=== PATIENT | female | born 2000 | race Hispanic/Latino ===

== ENCOUNTER 2023-05-20 14:32 | Emergency (ER) | payer BC, SELFPAY ==
[2023-05-20] VITALS (8 sets, daily range): BP systolic 100–119; BP diastolic 50–81; PULSE 76–90; RESP 14–18; TEMP 36.3–37.3; O2SAT 100
[2023-05-20 15:10] LABS: Basophils Absolute Auto 0.1 K/mm3 (0.0-0.1); Basophils Percent Auto 1.2 % (0.2-1.2); Eosinophils Percent Auto 0.5 % (0-4.4); Hematocrit 27.1 % (37.0-47.0); Immature Granulocyte Absolute 0.01 K/mm3 (0.00-0.031); Immature Granulocyte Percent A 0.2 % (0-0.5); Lymphocytes Absolute Auto 1.61 K/mm3 (0.9-3.2); Lymphocytes Percent Auto 27.5 % (18.3-44.2); Mean Corpuscular HGB Conc 25.5 g/dl (32-36); Mean Corpuscular Hemoglobin 16.5 pg (26-34); Mean Platelet Volume 9.5 fl (7.4-10.4); Monocytes Absolute Auto 0.4 K/mm3 (0.1-0.6); Monocytes Percent Auto 6.8 % (2.6-8.5); Neutrophils Absolute Auto 3.7 K/mm3 (1.3-6.7); Neutrophils Percent Auto 63.8 % (45.5-73.1); Platelet Count Result 318 k/mm3 (150-375); Red Blood Count 4.17 M/mm3 (4.2-5.4); White Blood Count 5.9 K/mm3 (4.5-10.0)
[2023-05-20 15:19] LABS: Prothrombin Time 14.1 Seconds (11.1-14.7)
[2023-05-20 15:20] LABS: Partial Thromboplastin Time 28.8 SECONDS (22.3-36.8)
[2023-05-20 15:25] LABS: Alanine Aminotransferase 9 U/L (6-35); Albumin Level 4.6 g/dL (3.5-5.1); Alkaline Phosphatase 59 U/L (38-126); Anion Gap 6 mmol/L (8-16); Aspartate Amino Transferase 23 U/L (14-36); Bilirubin,Total 0.7 mg/dL (0.2-1.3); Blood Urea Nitrogen 10 mg/dL (7-17); Calcium 9.2 mg/dL (8.4-10.2); Carbon Dioxide 27 mmol/L (22-30); Chloride 105 mmol/L (98-107); Estimated CRCL calculation 121 ml/min; Estimated Glomerular Filt Rate > 60; Glucose 101 mg/dL (65-110); Sodium 138 mmol/L (137-145)
[2023-05-20 15:36] LABS: Hemoglobin 6.9 g/dL (12.0-15.0)
[2023-05-20 15:45] LABS: Platelet Estimate Adequate (Adequate)
[2023-05-20 15:46] LABS: Anisocytosis 3+ (NORMAL); Hypochromasia 1+ (NORMAL); Schistocytes None Seen (NORMAL)
[2023-05-20 15:47] LABS: Macrocytosis 2+ (NORMAL)
[2023-05-20] MEDS: SODIUM CHLORIDE 0.9% IV 250 ML 30 ML IV CONT (16:47)
[2023-05-20] MEDS: TUBING, BLOOD PLUM PUMP TUBING 1 EACH XX ×2 (16:47→18:36)
--- NOTE | 2023-05-20 16:49 | ED.GENADULT ---
HPI - General Adult General Chief complaint: Recheck/Abnormal Lab/Rx Stated complaint: sent by derm for RX? Time Seen by Provider: 05/20/23 14:51 History of Present Illness HPI narrative: Patient is a 22-year-old female who was sent to the ER by her steel burner for anemia. Patient was having a workup for alopecia and was found to have a critically low hemoglobin of 6.5. Patient reports moderately heavy and menstrual cycles for the 1st 2 days but they do not last longer than 5-6 days. She has had no syncope. She reports she gets short of breath when walking up stairs but thought it was just related to poor conditioning. She does endorse cold intolerance. She has had no dark black stools. She has not been told that she has been anemic in the past. Denies any family history of anemia. Related Data Allergies Allergy/AdvReac Type Severity Reaction Status Date / Time No Known Allergies Allergy Verified 05/20/23 14:33 Review of Systems Review of Systems: All systems reviewed & are unremarkable except as noted in HPI and below Constitutional: Constitutional: Reports no additional constitutional complaints ENT: Reports system reviewed and no additional complaints, except as documented Cardiovascular: Cardiovascular: Reports no additional cardiovascular complaints Respiratory: Respiratory: Reports no additional respiratory complaints Gastrointestinal: Gastrointestinal: Reports no additional gastrointestinal complaints Genitourinary: Genitourinary: Reports no additional female genitourinary complaints PMFSH Past Medical History Medical History (Updated 05/20/23 @ 16:55 by Julius Higgins MD) Asthma Surgical History Surgical History (Updated 05/20/23 @ 16:55 by Julius Higgins MD) No pertinent past surgical history Exam Narrative: GENERAL: Well-appearing, well-nourished, and in no acute distress. HEAD: Normocephalic, atraumatic. ENT: Mucous membranes moist. NECK: Supple. CHEST: Clear to auscultation. No respiratory distress. HEART: Regular rate and rhythm. Normal peripheral pulses. EXTREMITIES: Normal range of motion. No edema. NEURO: Alert and oriented x3. PSYCH: Normal mood and affect. Course Course Emergency Course: Discussed case with hematology. Recommends transfusion and some additional anemia orders. Patient may be discharged home with outpatient follow-up. Recommend b.i.d. iron as well as daily vitamin- C. Patient educated on the treatment plan and verbalized understanding. Additionally patient has been instructed to discontinue her spironolactone at the recommendation of her steel burner. Vital Signs Vital signs: Vital Signs Temperature 97.7 F 05/20/23 14:41 Pulse Rate 87 05/20/23 14:41 Respiratory Rate 14 05/20/23 14:41 Blood Pressure 119/81 05/20/23 14:41 Pulse Oximetry 100 05/20/23 14:41 Temperature 99.1 F 05/20/23 16:48 Pulse Rate 82 05/20/23 16:48 Respiratory Rate 18 05/20/23 16:48 Blood Pressure 117/74 05/20/23 16:48 Pulse Oximetry 100 05/20/23 16:48 Medical Decision Making Vital Signs Vital Signs: Vital Signs Temperature 97.7 F 05/20/23 14:41 Pulse Rate 87 05/20/23 14:41 Respiratory Rate 14 05/20/23 14:41 Blood Pressure 119/81 05/20/23 14:41 Pulse Oximetry 100 05/20/23 14:41 Temperature 99.1 F 05/20/23 16:48 Pulse Rate 82 05/20/23 16:48 Respiratory Rate 18 05/20/23 16:48 Blood Pressure 117/74 05/20/23 16:48 Pulse Oximetry 100 05/20/23 16:48 Lab Data 05/20/23 15:02 05/20/23 15:02 Labs: Lab Results 05/20/23 05/20/23 Range/Units 15:02 16:05 WBC 5.9 (4.5-10.0) K/mm3 RBC 4.17 L (4.2-5.4) M/mm3 Hgb 6.9 L* (12.0-15.0) g/dL Hct 27.1 L (37.0-47.0) % MCV 65.0 L (80-100) fl MCH 16.5 L (26-34) pg MCHC 25.5 L (32-36) g/dl RDW 19.0 H (11.5-14.5) % Plt Count 318 (150-375) k/mm3 MPV 9.5 (7.4-10.4) fl
[2023-05-20 16:53] LABS: Immature Reticulocyte Fraction 14.3 % (3.0-15.9); Reticulocyte Hemoglobin Conten 15.5 pg (28.2-35.7); Reticulocyte Percent 1.31 % (0.7-4.3); Reticulocytes Absolute 0.05 M/mm3 (0.02-0.1)
[2023-05-20 17:32] LABS: Lactate Dehydrogenase 167 U/L (120-246)
[2023-05-20 18:04] LABS: Ferritin 3.03 ng/mL (6.24-137)
[2023-05-20 18:39] LABS: Folic Acid 6.6 ng/mL (2.76->20)
[2023-05-23 10:41] LABS: Haptoglobin 125 mg/dL (43-212)
== END 2023-05-20 20:05 | disposition home or self-care (01) ==
PROVIDERS: Emergency Provider Emergency Medicine
DX: D64.9 Anemia, unspecified (principal); J45.909 Unspecified asthma, uncomplicated
CPT/HCPCS: 36415; 36430; 80053; 82607; 82728; 82746; 83010; 83615; 85025; 85046; 85610; 85730; 86850; 86900; 86901; 86923; 96360; 96361; 99285; J7050; P9016

== ENCOUNTER 2023-06-03 14:54 | Outpatient (CLI) | payer BC, SELFPAY ==
[2023-06-03 15:14] LABS: Basophils Absolute Auto 0.1 K/mm3 (0.0-0.1); Basophils Percent Auto 0.9 % (0.2-1.2); Eosinophils Absolute Auto 0.1 K/mm3 (0-0.3); Eosinophils Percent Auto 0.7 % (0-4.4); Hematocrit 38.6 % (37.0-47.0); Hemoglobin 11.1 g/dL (12.0-15.0); Immature Granulocyte Absolute 0.03 K/mm3 (0.00-0.031); Immature Granulocyte Percent A 0.4 % (0-0.5); Lymphocytes Absolute Auto 1.63 K/mm3 (0.9-3.2); Lymphocytes Percent Auto 20.1 % (18.3-44.2); Mean Corpuscular HGB Conc 28.8 g/dl (32-36); Mean Corpuscular Hemoglobin 21.7 pg (26-34); Mean Corpuscular Volume 75.5 fl (80-100); Mean Platelet Volume 9.6 fl (7.4-10.4); Monocytes Absolute Auto 0.4 K/mm3 (0.1-0.6); Monocytes Percent Auto 4.9 % (2.6-8.5); Neutrophils Absolute Auto 5.9 K/mm3 (1.3-6.7); Platelet Count Result 424 k/mm3 (150-375); Red Blood Count 5.11 M/mm3 (4.2-5.4); Red Cell Distribution Width 29.2 % (11.5-14.5); White Blood Count 8.1 K/mm3 (4.5-10.0)
[2023-06-03 15:24] LABS: Anisocytosis 1+; Microcytosis 1+ (NORMAL); Platelet Estimate Increased (Adequate); Schistocytes None Seen
[2023-06-03 15:25] LABS: Hypochromasia 1+
[2023-06-03 19:19] LABS: Iron 83 ug/dL (37-170)
[2023-06-03 19:28] LABS: Percent Iron Saturation 20 % (20-50)
[2023-06-03 20:30] LABS: Alanine Aminotransferase 11 U/L (6-35); Albumin Level 4.4 g/dL (3.5-5.1); Alkaline Phosphatase 57 U/L (38-126); Anion Gap 7 mmol/L (8-16); Aspartate Amino Transferase 20 U/L (14-36); Bilirubin,Total 0.6 mg/dL (0.2-1.3); Blood Urea Nitrogen 10 mg/dL (7-17); Calcium 9.2 mg/dL (8.4-10.2); Carbon Dioxide 25 mmol/L (22-30); Chloride 107 mmol/L (98-107); Estimated Glomerular Filt Rate > 60; Glucose 104 mg/dL (65-110); Lactate Dehydrogenase 176 U/L (120-246); Potassium 3.7 mmol/L (3.4-5.0); Sodium 139 mmol/L (137-145)
[2023-06-03 21:37] LABS: Folic Acid 7.1 ng/mL (2.76->20)
[2023-06-07 14:46] LABS: Methylmalonic Acid 119 nmol/L (87-318)
[2023-06-10 12:32] LABS: Soluble Transferrin Receptor 3.01 mg/L (0.76-1.76)
== END 2023-06-03 14:55 | disposition home or self-care (01) ==
LOC: ANHLAB 14:57
PROVIDERS: Nurse Practitioner Family; Visit Provider Internal Medicine Hematology & Oncology
DX: D50.8 Other iron deficiency anemias (principal)
CPT/HCPCS: 36415; 80053; 82607; 82728; 82746; 83540; 83550; 83615; 83921; 84238; 85025

== ENCOUNTER 2023-09-11 11:59 | Outpatient (CLI) | payer BC, SELFPAY ==
[2023-09-11 12:14] LABS: Basophils Absolute Auto 0.1 K/mm3 (0.0-0.1); Basophils Percent Auto 0.6 % (0.2-1.2); Eosinophils Percent Auto 0.4 % (0-4.4); Hematocrit 39.7 % (37.0-47.0); Hemoglobin 13.1 g/dL (12.0-15.0); Immature Granulocyte Absolute 0.02 K/mm3 (0.00-0.031); Immature Granulocyte Percent A 0.2 % (0-0.5); Lymphocytes Absolute Auto 1.55 K/mm3 (0.9-3.2); Lymphocytes Percent Auto 18.7 % (18.3-44.2); Mean Corpuscular Volume 90.8 fl (80-100); Mean Platelet Volume 9.7 fl (7.4-10.4); Monocytes Absolute Auto 0.4 K/mm3 (0.1-0.6); Monocytes Percent Auto 4.6 % (2.6-8.5); Neutrophils Absolute Auto 6.3 K/mm3 (1.3-6.7); Neutrophils Percent Auto 75.5 % (45.5-73.1); Platelet Count Result 297 k/mm3 (150-375); Red Blood Count 4.37 M/mm3 (4.2-5.4); Red Cell Distribution Width 13.2 % (11.5-14.5); White Blood Count 8.3 K/mm3 (4.5-10.0)
[2023-09-11 13:46] LABS: Iron 83 ug/dL (37-170)
[2023-09-11 14:08] LABS: Percent Iron Saturation 17 % (20-50)
[2023-09-11 14:25] LABS: Ferritin 5.75 ng/mL (6.24-137)
[2023-09-11 14:54] LABS: Folic Acid 10.6 ng/mL (2.76->20)
== END 2023-09-11 12:00 | disposition home or self-care (01) ==
LOC: ANHLAB 12:00
PROVIDERS: Nurse Practitioner Family; Visit Provider Internal Medicine Hematology & Oncology
DX: D50.8 Other iron deficiency anemias (principal)
CPT/HCPCS: 36415; 82607; 82728; 82746; 83540; 83550; 85025

== ENCOUNTER 2024-01-20 11:26 | Outpatient (CLI) | payer BC, MEDICAID, SELFPAY ==
[2024-01-20 11:47] LABS: Basophils Absolute Auto 0.1 K/mm3 (0.0-0.1); Basophils Percent Auto 0.7 % (0.2-1.2); Eosinophils Absolute Auto 0.1 K/mm3 (0-0.3); Eosinophils Percent Auto 0.7 % (0-4.4); Hematocrit 40.7 % (37.0-47.0); Hemoglobin 13.2 g/dL (12.0-15.0); Immature Granulocyte Absolute 0.02 K/mm3 (0.00-0.031); Immature Granulocyte Percent A 0.3 % (0-0.5); Lymphocytes Absolute Auto 1.38 K/mm3 (0.9-3.2); Lymphocytes Percent Auto 18.4 % (18.3-44.2); Mean Corpuscular HGB Conc 32.4 g/dl (32-36); Mean Corpuscular Hemoglobin 30.2 pg (26-34); Mean Corpuscular Volume 93.1 fl (80-100); Mean Platelet Volume 9.5 fl (7.4-10.4); Monocytes Absolute Auto 0.3 K/mm3 (0.1-0.6); Monocytes Percent Auto 4.4 % (2.6-8.5); Neutrophils Absolute Auto 5.7 K/mm3 (1.3-6.7); Neutrophils Percent Auto 75.5 % (45.5-73.1); Platelet Count Result 302 k/mm3 (150-375); Red Blood Count 4.37 M/mm3 (4.2-5.4); Red Cell Distribution Width 12.8 % (11.5-14.5); White Blood Count 7.5 K/mm3 (4.5-10.0)
[2024-01-20 15:24] LABS: Cholesterol 190 mg/dL (0-200); HDL Direct 65 mg/dL; Triglycerides 124 mg/dL (<150)
[2024-01-20 15:25] LABS: Iron 102 ug/dL (37-170)
[2024-01-20 15:30] LABS: Alanine Aminotransferase 12 U/L (6-35); Albumin Level 4.4 g/dL (3.5-5.1); Alkaline Phosphatase 48 U/L (38-126); Anion Gap 8 mmol/L (4-12); Aspartate Amino Transferase 18 U/L (14-36); Bilirubin,Total 0.3 mg/dL (0.2-1.3); Blood Urea Nitrogen 11 mg/dL (7-17); Carbon Dioxide 23 mmol/L (22-30); Chloride 106 mmol/L (98-107); Estimated Glomerular Filt Rate > 60; Glucose 97 mg/dL (65-110); Potassium 4.6 mmol/L (3.4-5.0); Sodium 137 mmol/L (137-145)
[2024-01-20 15:35] LABS: LDL Cholesterol Direct 93 mg/dL
[2024-01-20 15:37] LABS: Percent Iron Saturation 22 % (20-50)
[2024-01-20 16:40] LABS: Folic Acid 5.8 ng/mL (2.76->20)
== END 2024-01-20 11:27 | disposition home or self-care (01) ==
LOC: ANHLAB 11:27
PROVIDERS: Visit Provider Internal Medicine Hematology & Oncology
DX: D50.9 Iron deficiency anemia, unspecified (principal); E53.8 Deficiency of other specified B group vitamins; Z79.899 Other long term (current) drug therapy
CPT/HCPCS: 36415; 80053; 80061; 82607; 82728; 82746; 83540; 83550; 85025